=== PATIENT | female | born 1965 | race Caucasian/White ===

== ENCOUNTER 2016-04-20 19:59 | Emergency (ER) | payer BC ==
[2016-04-20] MEDS: predniSONE TAB* 20 MG PO ONE (21:59)
[2016-04-20 22:05] VITALS: BP 139/80
--- NOTE | 2016-04-20 22:10 | UC ---
Skin Complaint HPI - HPI Summary HPI Summary: pt c/o of ongoing urticaria yobani thas worsened today. Pt reports taking a " whole bottle of bendaryl with little improvement" - History of Current Complaint Chief Complaint: UCSkin Time Seen by Provider: 04/20/16 21:35 Stated Complaint: SKIN IRRITATION Hx Obtained From: Patient Hx Last Menstrual Period: 04/10/16 ?: No Onset/Duration: Gradual Onset, Still Present Timing: Constant Onset Severity: Mild Current Severity: Mild Pain Intensity: 0 Pain Scale Used: 0-10 Numeric Location: Discrete - left shoulder Character: Pruritus, Hives Aggravating: Nothing Alleviating: Antihistamines - mild improvement Associated Signs & Symptoms: Positive: Rash - Allergy/Home Medications Allergies/Adverse Reactions: Allergies Allergy/AdvReac Type Severity Reaction Status Date / Time No Known Allergies Allergy Verified 06/18/14 12:14 Home Medications: Home Medications Cetirizine HCl [Zyrtec Allergy 10 MG TAB] 10 mg PO 04/20/16 [History] Diphenhydramine-Phenylephrine [Benadryl-D Allergy & Sinu] 1 nikkie PO 04/20/16 [ History Confirmed 04/20/16] Review of Systems Constitutional: Negative Skin: Rash Eyes: Negative ENT: Negative Respiratory: Negative Cardiovascular: Negative Gastrointestinal: Negative Genitourinary: Negative Motor: Negative Neurovascular: Negative Musculoskeletal: Negative Neurological: Negative Psychological: Negative All Other Systems Reviewed And Are Negative: Yes PMH/Surg Hx/FS Hx/Imm Hx Previously Healthy: Yes Endocrine History Of: Denies: Diabetes Cardiovascular History Of: Denies: Hypertension, Congestive Heart Failure GI/ History Of: Denies: Renal Disease Cancer History Of: Denies: Breast Cancer - Surgical History Surgical History: None - Family History Known Family History: Positive: Cardiac Disease - Social History Lives: With Family Alcohol Use: None Substance Use Type: None Smoking Status (MU): Former Smoker Have You Smoked in the Last Year: No Physical Exam Triage Information Reviewed: Yes Appearance: Well-Appearing Vital Signs: Initial Vital Signs Temp 97.7 F 04/20/16 21:36 Pulse 68 04/20/16 21:36 Resp 16 04/20/16 21:36 BP 147/68 04/20/16 21:36 Pulse Ox 100 04/20/16 21:36 Vital Signs Reviewed: Yes Eye Exam: Normal Neck exam: Normal Respiratory Exam: Normal Cardiovascular Exam: Normal Musculoskeletal Exam: Normal Neurological Exam: Normal Psychological Exam: Normal Skin Exam: Other Skin: Positive: rashes - urticaria, left shoulder Course/Dx - Course Course Of Treatment: I discussed with the pt that her BP was elevated at todays visit and directed her to follow up with her pCP. Pt verbalized understanding and agreed toplan of care. - Differential Diagnoses - Skin Complaint Differential Diagnoses: Urticaria - Diagnoses Provider Diagnoses: urticaria- elevated BP Discharge - Discharge Plan Condition: Stable Disposition: HOME Patient Education Materials: Urticaria (ED) Referrals: Jes Muñoz NP [Primary Care Provider] - Additional Instructions: Please follow up with your PCP or return to clinic.
== END 2016-04-20 22:15 | disposition home or self-care (01) ==
LOC: UCEAST 19:59
DX: L50.9 Urticaria, unspecified (principal); R03.0 Elevated blood-pressure reading, without diagnosis of hypertension; Z87.891 Personal history of nicotine dependence
CPT/HCPCS: 99202; G0463; J7512

== ENCOUNTER 2017-09-17 16:45 | Emergency (ER) | payer BC ==
[2017-09-17 17:14] VITALS: BP 138/87
--- NOTE | 2017-09-17 17:57 | UC ---
Ear Complaint HPI - History of Current Complaint Chief Complaint: UCLowerExtremity Stated Complaint: TOE INJURY Hx Last Menstrual Period: [id number] Pain Intensity: 6 - Allergies/Home Medications Allergies/Adverse Reactions: Allergies Allergy/AdvReac Type Severity Reaction Status Date / Time No Known Allergies Allergy Verified 09/17/17 17:15 Home Medications: Home Medications Acetaminophen TAB* [Tylenol TAB*] 975 mg PO Q6H PRN 09/17/17 [History Confirmed 09/17/17] PMH/Surg Hx/FS Hx/Imm Hx - Surgical History Surgical History: None - Family History Known Family History: Positive: Cardiac Disease - Social History Alcohol Use: None Substance Use Type: None Smoking Status (MU): Former Smoker Have You Smoked in the Last Year: No Physical Exam - Summary Physical Exam Summary: General: well-appearing, no pain distress Skin: warm, color reflects adequate perfusion, dry Head: normal Eyes: EOMI, DORIAN ENT: L ear canal is swollen and has drainage; R ear is normal Neck: supple, nontender Respiratory: CTA, breath sounds present Cardiovascular: RRR Abdomen: soft, nontender Bowel: present Musculoskeletal: normal, strength/ROM intact Neurological: sensory/motor intact, A&O x3 Psychological: affect/mood appropriate Vital Signs: Initial Vital Signs Temp 98.4 F 09/17/17 17:09 Pulse 72 09/17/17 17:09 Resp 16 09/17/17 17:09 BP 138/87 09/17/17 17:09 Pulse Ox 99 09/17/17 17:09 Discharge - Discharge Plan Referrals: No Primary Care Phys,NOPCP [Primary Care Provider] -
--- NOTE | 2017-09-17 18:15 | UC ---
Lower Extremity/Ankle HPI - HPI Summary HPI Summary: The pt is a 52 y/o female presenting to c/o R toe pain since this morning before work. She dropped a 2' x 6' x 10' piece of wood on her toe. The throbbing pain is rated 6/10 in intensity and is aggravated by walking . She notes swelling but denies R ankle pain. She was able to go to work today. This is scribe Siri Baez documenting for attending Dr. Nona Montilla, Dr. Castellano , personally performed the services described in this documentation as scribed in my presence and it is both accurate and complete. - History of Current Complaint Chief Complaint: UCLowerExtremity Stated Complaint: TOE INJURY Time Seen by Provider: 09/17/17 17:56 Hx Obtained From: Patient Hx Last Menstrual Period: [id number] Onset/Duration: Sudden Onset - Today Severity Initially: Moderate Severity Currently: Moderate Pain Intensity: 6 Pain Scale Used: 0-10 Numeric Aggravating Factor(s): Ambulation - Allergies/Home Medications Allergies/Adverse Reactions: Allergies Allergy/AdvReac Type Severity Reaction Status Date / Time No Known Allergies Allergy Verified 09/17/17 17:15 Home Medications: Home Medications Acetaminophen TAB* [Tylenol TAB*] 975 mg PO Q6H PRN 09/17/17 [History Confirmed 09/17/17] PMH/Surg Hx/FS Hx/Imm Hx Previously Healthy: Yes - No known hx od DM, HTN, HLD or OR - Surgical History Surgical History: None - Family History Known Family History: Positive: Cardiac Disease - Social History Occupation: Employed Full-time Lives: With Family Alcohol Use: None Substance Use Type: None Smoking Status (MU): Former Smoker Have You Smoked in the Last Year: No Review of Systems Constitutional: Fever Musculoskeletal: Negative - Knee pain, Other: - R toe pain and swelling All Other Systems Reviewed And Are Negative: Yes Physical Exam - Summary Physical Exam Summary: General: well-appearing, no pain distress Skin: warm, color reflects adequate perfusion, dry Head: normal Eyes: EOMI, DORIAN ENT: normal Neck: supple, nontender Respiratory: CTA, breath sounds present Cardiovascular: RRR Abdomen: soft, nontender Bowel: present Musculoskeletal: Ecchymosis and swelling of the R toe, Swelling of the R foot and ankle otherwise non tender to palpation, strength/ROM intact Neurological: sensory/motor intact, A&O x3 Psychological: affect/mood appropriate Triage Information Reviewed: Yes Vital Signs: Initial Vital Signs Temp 98.4 F 09/17/17 17:09 Pulse 72 09/17/17 17:09 Resp 16 09/17/17 17:09 BP 138/87 09/17/17 17:09 Pulse Ox 99 09/17/17 17:09 Vital Signs Reviewed: Yes Diagnostics - Radiology R toe XRay Radiology Interpretation Completed By: Radiologist - IMPRESSION:Probable nondisplaced intra-articular fracture lateral base of the first distal phalanx. The ED physician has reviewed thi sradiology report. Lower Extremity Course/Dx - Course Course Of Treatment: DISCUSSED X-RAYS WITH PATIENT. POST OP SHOE PLACED. F/U ORTHOPEDICS. - Differential Dx/Diagnosis Provider Diagnoses: RIGHT GREAT TOE DISTAL PHALANYX FRACTURE Discharge - Sign-Out/Discharge Documenting (check all that apply): Patient Departure - Discharge Plan Condition: Stable Disposition: HOME Patient Education Materials: Toe Fracture (ED) Forms: *Work Release Referrals: [facility] [place] [facility] [Outside] [facility] [place] [facility] [Outside] Aiden Brunner MD [Medical Doctor] - Additional Instructions: FOLLOW UP WITH ORTHOPEDICS. GET RECHECKED FOR ANY WORSENING OF YOUR CONDITION OR QUESTIONS OR CONCERNS. - Billing Disposition and Condition Condition: STABLE Disposition: Home
--- NOTE | 2017-09-17 18:17 | RAD ---
Indication: RIGHT great toe pain following injury. Pain and swelling at the IP joint. Comparison: No relevant prior exams available on the [facility] PACS for comparison. Technique: 3 views of the RIGHT great toe. Report: Suggestion of a nondisplaced intra-articular fracture at the lateral base of the distal phalanx reference the AP view. Negative for additional fracture. Slight hallux valgus deformity. Mild osteophytosis and joint space narrowing at the first metatarsal phalangeal joint. Soft tissue swelling throughout most prominent over the medial margin of the first metatarsal phalangeal joint. IMPRESSION: #. Probable nondisplaced intra-articular fracture lateral base of the first distal phalanx.
== END 2017-09-17 18:50 | disposition home or self-care (01) ==
LOC: UCEAST 16:45
DX: S92.421A Displaced fracture of distal phalanx of right great toe, initial encounter for closed fracture (principal); W20.8XXA Other cause of strike by thrown, projected or falling object, initial encounter; Y93.9 Activity, unspecified; Y92.9 Unspecified place or not applicable; Z87.891 Personal history of nicotine dependence
CPT/HCPCS: 99212; G0463